=== PATIENT | male | born 1980 | race African-American/Black ===

== ENCOUNTER 2020-07-27 09:40 | Emergency (ER) | payer OTHER ==
[~2020-07-27] VITALS: Ht 193 cm; Wt 149.7 kg
[2020-07-27 09:40] VITALS: BP 130/75
[2020-07-27] MEDS ORDERED: LIDODERM1 EACH TOP (11:19)
[2020-07-27] MEDS ORDERED: MOBIC15 MG PO (11:19)
== END 2020-07-27 11:21 | disposition home or self-care (01) ==
LOC: ER 09:40
DX: R07.89 Other chest pain (principal); R07.81 Pleurodynia; J45.909 Unspecified asthma, uncomplicated; Z88.6 Allergy status to analgesic agent